=== PATIENT | male | born 1980 | race Caucasian/White ===

== ENCOUNTER → 2021-08-30 | Outpatient (CLI) | payer BC | END | disposition home or self-care (01) | LOC: LABWHC1 08:39 | PROVIDERS: ATTEND Family Medicine | DX: E23.0 Hypopituitarism (principal) | CPT/HCPCS: 36415; 84403 ==

== ENCOUNTER → 2025-04-17 | Outpatient (CLI) | payer BC | END | disposition home or self-care (01) | LOC: LABWHC1 09:31 | PROVIDERS: ATTEND Family Medicine | DX: E23.0 Hypopituitarism (principal) | CPT/HCPCS: 36415; 82671; 84402; 84403 ==